=== PATIENT | female | born 1995 | race Caucasian/White ===

== ENCOUNTER 2016-07-29 20:50 | Emergency (ER) | payer OTHER ==
[~2016-07-29] VITALS: Ht 167.6 cm; Wt 84.6 kg
[2016-07-29 20:57] VITALS: BP 141/91; TEMP 37.1; Ht 167.6 cm; Wt 84.6 kg
[2016-07-29] MEDS ORDERED: MEDR150I INJ (21:14)
[2016-07-29] MEDS ORDERED: ADAP0.05 TOP (21:14)
[2016-07-29] MEDS ORDERED: ALBU18002 INH (21:14)
[2016-07-29] MEDS ORDERED: ACETAMINOPHEN 500 MG TAB PO STA (21:19)
[2016-07-29 21:34] VITALS: PULSE 76; O2SAT 98
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
== END 2016-07-29 21:36 | disposition home or self-care (01) ==
LOC: C.EDB 20:52 → C.EDD 21:36
DX: S16.1XXA Strain of muscle, fascia and tendon at neck level, initial encounter (principal); S00.33XA Contusion of nose, initial encounter; V48.5XXA Car driver injured in noncollision transport accident in traffic accident, initial encounter; Z79.3 Long term (current) use of hormonal contraceptives; Z88.0 Allergy status to penicillin; Z88.1 Allergy status to other antibiotic agents